=== PATIENT | male | born 1980 | race Caucasian/White ===

== ENCOUNTER 2016-10-22 13:29 | Emergency (ER) | payer MEDICAID, OTHER ==
[~2016-10-22] VITALS: Ht 188 cm; Wt 120.0 kg
[~2016-10-22 13:29] MED LIST: HYDR-3111 PO
[2016-10-22 13:30] VITALS: BP 146/77; PULSE 86; RESP 24; TEMP 97.6; O2SAT 97
--- NOTE | 2016-10-22 13:36 | PD ---
Physical Exam Time Seen by Provider: 13:33 Narrative 36 year old male presents stung by stingray yesterday. Awoke with increased L hand pain, n/v/chills. VSS. Seen at triage desk. Awaiting bed placement. Data Data Last Documented VS Vital Signs Date Time Temp Pulse Resp B/P Pulse Ox O2 Delivery O2 Flow Rate FiO2 10/22/16 13:30 97.6 86 24 146/77 97 Room Air [facility] Medical Record Reviewed: Yes Supervised Visit with DENISA: Yes Germán Lynn Oct 22, 2016 13:36
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
[2016-10-22] MEDS ORDERED: ONDANSETRON HCL 4 MG/2 ML VIAL IM ONE (14:30)
[2016-10-22] MEDS ORDERED: ACETAMINOPHEN/HYDROcodone 325 MG/5 MG TAB PO ONE (14:30)
[2016-10-22] MEDS ORDERED: TETANUS/DIPHTHERIA TOXOID ADULT 0.5 ML VIAL IM ONE (14:30)
[2016-10-22] MEDS ORDERED: LEVOFLOXACIN 750 MG TAB PO ONE (15:30)
[2016-10-22] MEDS ORDERED: HYDR-3533 PO (15:30)
[2016-10-22] MEDS ORDERED: DOXYCYCLINE HYCLATE 100 MG CAP PO ONE (15:30)
[2016-10-22] MEDS ORDERED: ONDA4TAB7 SL ×2 (15:35→15:37)
[2016-10-22] MEDS ORDERED: DOXY100C PO ×2 (15:35→15:37)
[2016-10-22] MEDS ORDERED: CIPR500T2 PO ×2 (15:35→15:37)
--- NOTE | 2016-10-22 15:36 | RADRPT ---
EXAM DATE/TIME: 10/22/2016 14:57 [facility] COMPARISON: No previous studies available for comparison. INDICATIONS : Left hand pain. Stung by a stingray yesterday. MEDICAL HISTORY : None. SURGICAL HISTORY : None. ENCOUNTER: Initial ACUITY: 1 day PAIN SCORE: 8/10 LOCATION: Left Lateral hand FINDINGS: Three views of the left hand demonstrate no fracture or dislocation. Mineralization is within normal limits and there is no significant arthropathy. No soft tissue abnormality or radiopaque foreign body is identified. CONCLUSION: No acute finding is identified. No radiopaque foreign body is seen. Sundeep Lowe MD on October 22, 2016 at 15:32 Board Certified Radiologist. This report was verified electronically.
== END 2016-10-22 16:56 | disposition home or self-care (01) ==
LOC: NEPD 13:29
DX: T63.511A Toxic effect of contact with stingray, accidental (unintentional), initial encounter (principal); L03.114 Cellulitis of left upper limb; R11.2 Nausea with vomiting, unspecified; F17.200 Nicotine dependence, unspecified, uncomplicated; Z23 Encounter for immunization; Z86.59 Personal history of other mental and behavioral disorders; X58.XXXA Exposure to other specified factors, initial encounter
CPT/HCPCS: 73130; 90471; 90714; 96372; 99283; J2405

== ENCOUNTER 2017-06-15 23:55 | Emergency (ER) | payer SELFPAY ==
[~2017-06-15] VITALS: Ht 188 cm; Wt 110.0 kg
[~2017-06-15 23:55] MED LIST changes: +CIPR500T2 PO; +DOXY100C PO; +HYDR-3533 PO; +ONDA4TAB7 SL
[2017-06-16 00:06] VITALS: BP 148/96; PULSE 96; RESP 18; TEMP 98.2; O2SAT 99
[2017-06-16 01:47] LABS: AUTOMATED NEUTROPHIL # 8.8 TH/MM3 (1.8-7.7); BASOPHIL # 0.1 TH/MM3 (0-0.2); BASOPHIL % 0.6 % (0.0-2.0); BLOOD, URINE NEG (NEG); EOSINOPHIL # 0.1 TH/MM3 (0-0.4); EOSINOPHIL % 1.1 % (0.0-4.0); GLUCOSE,URINE NEG (NEG); HEMATOCRIT 47.2 % (39.0-51.0); HEMO FLAGS DIFF FINAL; KETONE, URINE NEG (NEG); LYMPH % 20.2 % (9.0-44.0); LYMPHOCYTE # 2.5 TH/MM3 (1.0-4.8); MEAN CELL VOLUME 93.8 FL (80.0-100.0); MEAN CORPUSCULAR HGB CONC 34.1 % (32.0-36.0); MONO % 6.1 % (0.0-8.0); NITRITE,URINE NEG (NEG); PLATELET COUNT 294 TH/MM3 (150-450); RED BLOOD COUNT 5.03 MIL/MM3 (4.50-5.90); RED CELL DISTRIBUTION WIDTH 13.9 % (11.6-17.2); URINE COLOR LIGHT-YELLOW (YELLW/STRAW); WHITE BLOOD COUNT 12.2 TH/MM3 (4.0-11.0)
[2017-06-16 01:50] LABS: COMMENT (UR) CULT NOT INDICATED; CULTURE IF INDICATED CULT NOT INDICATED
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
[2017-06-16 02:01] LABS: ALT (GPT) 31 U/L (12-78); ANION GAP 7 MEQ/L (5-15); AST (GOT) 17 U/L (15-37); BICARBONATE 29.2 MEQ/L (21.0-32.0); BLOOD UREA NITROGEN 13 MG/DL (7-18); CHLORIDE 104 MEQ/L (98-107); GLOMERULAR FILTRATION RATE 85 ML/MIN (>89); MAGNESIUM 2.2 MG/DL (1.5-2.5); SODIUM (NA) 140 MEQ/L (136-145)
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
[2017-06-16 02:04] LABS: ALKALINE PHOSPHATASE 88 U/L (45-117); CREATINE KINASE 210 U/L (39-308); TOTAL BILIRUBIN ADULT 0.5 MG/DL (0.2-1.0)
[2017-06-16 02:16] LABS: CKMB 1.6 NG/ML (0.5-3.6)
[2017-06-16 02:35] LABS: APTT (PATIENT) 27.2 SEC (24.3-30.1); INTERNATIONAL NORMALIZED RATIO 1.1 RATIO; PROTHROMBIN TIME - PATIENT 10.9 SEC (9.8-11.6)
[2017-06-16] MEDS ORDERED: KETOROLAC TROMETHAMINE 30 MG/ML (IVP) VIAL IV PUSH ONE (03:15)
[2017-06-16] MEDS ORDERED: SODIUM CHLOR 0.9% 1000 ML INJ 1,000 ML IV ONE (03:15)
[2017-06-16] MEDS ORDERED: ONDANSETRON HCL 4 MG/2 ML VIAL IV ONE (03:15)
--- NOTE | 2017-06-16 03:56 | RADRPT ---
EXAM DATE/TIME: 06/16/2017 03:16 [facility] COMPARISON: No previous studies available for comparison. INDICATIONS : Right sided abdomen pain. ORAL CONTRAST: No oral contrast ingested. RADIATION DOSE: 8.56 CTDIvol (mGy) MEDICAL HISTORY : None SURGICAL HISTORY : None. ENCOUNTER: Initial ACUITY: 1 day PAIN SCALE: 8/10 LOCATION: Right abdomen TECHNIQUE: Volumetric scanning of the abdomen and pelvis was performed. Using automated exposure control and ad justment of the mA and/or kV according to patient size, radiation dose was kept as low as reasonably achievable to obtain optimal diagnostic quality images. DICOM format image data is available electro nically for review and comparison. FINDINGS: LOWER LUNGS: The visualized lower lungs are clear. LIVER: Homogeneous density without lesion. There is no dilation of the biliary tree. No calcified gallston es. SPLEEN: Normal size without lesion. PANCREAS: Within normal limits. KIDNEYS: Normal in size and shape. There is no mass, stone, or hydronephrosis. The visualized portions of the ureters are unremarkable. ADRENAL GLANDS: Within normal limits. VASCULAR: There is no aortic aneurysm. BOWEL/MESENTERY: No oral contrast was given limiting the sensitivity. The stomach, small bowel, and colon demonstrate no acute abnormality. There is no free intraperitoneal air or fluid. ABDOMINAL WALL: Within normal limits. RETROPERITONEUM: There is no lymphadenopathy. BLADDER: No wall thickening or mass. REPRODUCTIVE: Within normal limits. INGUINAL: There is no lymphadenopathy or hernia. MUSCULOSKELETAL: Within normal limits for patient age. CONCLUSION: 1. The kidneys and visualized portions of the ureters are unremarkable with no renal calculi or obstr uction. 2. Nonobstructive bowel gas pattern with no inflammatory change. Robby Keene MD on June 16, 2017 at 3:52 Board Certified Radiologist. This report was verified electronically.
--- NOTE | 2017-06-16 19:35 | EKG ---
Date Performed: 06/16/2017 Time Performed: 01:31:33 PTAGE: 36 years EKG: Sinus rhythm Since previous tracing, no significant change noted NORMAL ECG PREVIOUS TRACING : 06/08/2016 15.05.16 DOCTOR: José Miguel Brooks Interpretating Date/Time 06/16/2017 19:35:27
== END 2017-06-16 05:02 | disposition home or self-care (01) ==
LOC: NEPE 23:55
DX: R10.11 Right upper quadrant pain (principal); R05 Cough; R06.02 Shortness of breath; F31.9 Bipolar disorder, unspecified; F41.9 Anxiety disorder, unspecified; F17.200 Nicotine dependence, unspecified, uncomplicated; Z88.0 Allergy status to penicillin; Z79.899 Other long term (current) drug therapy
CPT/HCPCS: 71010; 74176; 80053; 81001; 82550; 82552; 83690; 83735; 83880; 84484; 85025; 85379; 85610; 85730; 86140; 93005; 96361; 96374; 96375; 99285; J1885; J2405; J7030

== ENCOUNTER 2017-06-25 09:54 | Emergency (ER) | payer SELFPAY ==
[2017-06-25 09:56] VITALS: BP 140/80; PULSE 89; RESP 14; TEMP 98; O2SAT 99
== END 2017-06-25 10:00 | disposition left against medical advice (07) ==
LOC: NED 09:54
DX: Z00.8 Encounter for other general examination (principal); Z53.21 Procedure and treatment not carried out due to patient leaving prior to being seen by health care provider
CPT/HCPCS: 99281

== ENCOUNTER 2017-06-30 22:00 | Emergency (ER) | payer SELFPAY ==
[~2017-06-30] VITALS: Ht 189.2 cm; Wt 118.2 kg
[2017-06-30 22:02] VITALS: BP 134/84; PULSE 74; RESP 16; TEMP 98.4; O2SAT 99
[2017-06-30] MEDS ORDERED: ROXI30TA14 PO (23:07)
[2017-06-30] MEDS ORDERED: SODIUM CHLOR 0.9% 1000 ML INJ 1,000 ML IV ONE (23:54)
[2017-07-01] MEDS ORDERED: SODIUM CHLORIDE 0.9% FLUSH 10 ML FLUSH IVF PRN
[2017-07-01] MEDS ORDERED: CLIN150C14 PO (00:16)
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
--- NOTE | 2017-07-01 12:49 | EKG ---
Date Performed: 06/30/2017 Time Performed: 23:02:54 PTAGE: 36 years EKG: SINUS BRADYCARDIA BORDERLINE ECG PREVIOUS TRACING : 06/21/2017 22.47 Since previous tracing, no significant change noted DOCTOR: Tone Lyles Interpretating Date/Time 07/01/2017 12:48:42
== END 2017-07-01 00:30 | disposition left against medical advice (07) ==
LOC: NEPE 22:00
DX: R55 Syncope and collapse (principal); H00.026 Hordeolum internum left eye, unspecified eyelid; H00.023 Hordeolum internum right eye, unspecified eyelid; F17.200 Nicotine dependence, unspecified, uncomplicated
CPT/HCPCS: 93005; 99281

== ENCOUNTER 2017-09-14 17:21 | Emergency (ER) | payer OTHER ==
[~2017-09-14] VITALS: Ht 188 cm; Wt 115.0 kg
[~2017-09-14 17:21] MED LIST changes: -CIPR500T2 PO; +CLIN150C14 PO; -DOXY100C PO; -HYDR-3111 PO; -HYDR-3533 PO; -ONDA4TAB7 SL; +ROXI30TA14 PO
[2017-09-14 17:25] VITALS: BP 158/83; PULSE 98; RESP 16; TEMP 98.7; O2SAT 99
[2017-09-14 18:22] VITALS: BP 116/84; PULSE 97; RESP 18; O2SAT 99
[2017-09-14] MEDS ORDERED: HYDR-3366 PO (18:27)
[2017-09-14] MEDS ORDERED: NICO14DI T-DERMAL (18:27)
[2017-09-14] MEDS ORDERED: OMEP20TA93 PO (18:27)
[2017-09-14] MEDS ORDERED: ZOFR4TAB PO (18:27)
[2017-09-14] MEDS ORDERED: METH500T3 PO (18:27)
[2017-09-14] MEDS ORDERED: CYCL10TA PO (18:27)
[2017-09-14] MEDS ORDERED: CELE100C PO (18:27)
[2017-09-14] MEDS ORDERED: SODIUM CHLOR 0.9% 1000 ML INJ 1,000 ML IV SCH (18:39)
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
[2017-09-14] MEDS ORDERED: MORPHINE SULFATE 4 MG/ML INJ IV PUSH ONE (18:45)
[2017-09-14] MEDS ORDERED: METOCLOPRAMIDE HCL 10 MG/2 ML VIAL IV PUSH ONE (18:45)
[2017-09-14] MEDS ORDERED: PANTOPRAZOLE SODIUM 40 MG VIAL IVP ONE (18:45)
--- NOTE | 2017-09-14 19:09 | PD ---
Physical Exam Narrative I, Dr. Room, have reviewed the advance practice practitioner's documentation and am in agreement, met with the patient face to face, made the diagnosis, and the medical decision making was done by me. *My assessment and Findings: Migraine headache vs. chronic headache vs. malingering 37yo M with headache since Sep 02 after slip and fall at work. Said he hit his head, neck, upper back and has had an extensive work up and was told he had concussion and post concussion syndrome. However, pt did not have LOC. Denies any new trauma or fall. Denies any focal neurologic deficits. Pt said he went to his PMD last friday and was given hydrocodone for the headache and headache is worst now. Said he ran out of hydrocodone today. No red flags. My PA will reevaluate pt after medications. Data Data Last Documented VS Vital Signs Date Time Temp Pulse Resp B/P (MAP) Pulse Ox O2 Delivery O2 Flow Rate FiO2 09/14/17 19:25 20 09/14/17 19:24 81 142/68 (92) 09/14/17 18:22 99 Room Air 09/14/17 17:25 98.7 Orders Orders Complete Blood Count With Diff (09/14/17 18:39) Comprehensive Metabolic Panel (09/14/17 18:39) Lipase (09/14/17 18:39) Morphine Inj (Morphine Inj) (09/14/17 18:45) Pantoprazole Inj (Protonix Inj) (09/14/17 18:45) Sodium Chlor 0.9% 1000 Ml Inj (Ns 1000 M (09/14/17 18:39) Metoclopramide Inj (Reglan Inj) (09/14/17 18:45) Ed Discharge Order (09/14/17 19:42) Labs Laboratory Tests Test 09/14/17 19:04 White Blood Count 7.3 TH/MM3 Red Blood Count 5.49 MIL/MM3 Hemoglobin 17.7 GM/DL Hematocrit 50.5 % Mean Corpuscular Volume 92.0 FL Mean Corpuscular Hemoglobin 32.3 PG Mean Corpuscular Hemoglobin Concent 35.1 % Red Cell Distribution Width 13.0 % Platelet Count 300 TH/MM3 Mean Platelet Volume 7.7 FL Neutrophils (%) (Auto) 66.0 % Lymphocytes (%) (Auto) 21.8 % Monocytes (%) (Auto) 9.5 % Eosinophils (%) (Auto) 2.1 % Basophils (%) (Auto) 0.6 % Neutrophils # (Auto) 4.8 TH/MM3 Lymphocytes # (Auto) 1.6 TH/MM3 Monocytes # (Auto) 0.7 TH/MM3 Eosinophils # (Auto) 0.2 TH/MM3 Basophils # (Auto) 0.0 TH/MM3 CBC Comment DIFF FINAL Differential Comment Blood Urea Nitrogen 12 MG/DL Creatinine 1.13 MG/DL Random Glucose 78 MG/DL Total Protein 7.8 GM/DL Albumin 4.1 GM/DL Calcium Level 9.2 MG/DL Alkaline Phosphatase 93 U/L Aspartate Amino Transf (AST/SGOT) 25 U/L Alanine Aminotransferase (ALT/SGPT) 38 U/L Total Bilirubin 0.5 MG/DL Sodium Level 137 MEQ/L Potassium Level 4.0 MEQ/L Chloride Level 102 MEQ/L Carbon Dioxide Level 30.8 MEQ/L Anion Gap 4 MEQ/L Estimat Glomerular Filtration Rate 72 ML/MIN Lipase 121 U/L [facility] Supervised Visit with DENISA: Yes Diagnosis Primary Impression: Headache Qualified Codes: G44.319 - Acute post-traumatic headache, not intractable Condition: Stable Jeannie Romo DO Sep 14, 2017 19:09
[2017-09-14 19:24] VITALS: BP 142/68
[2017-09-14 19:25] VITALS: RESP 20
[2017-09-14 19:56] LABS: AUTOMATED NEUTROPHIL # 4.8 TH/MM3 (1.8-7.7); BASOPHIL % 0.6 % (0.0-2.0); EOSINOPHIL # 0.2 TH/MM3 (0-0.4); EOSINOPHIL % 2.1 % (0.0-4.0); HEMATOCRIT 50.5 % (39.0-51.0); HEMOGLOBIN 17.7 GM/DL (13.0-17.0); LYMPH % 21.8 % (9.0-44.0); LYMPHOCYTE # 1.6 TH/MM3 (1.0-4.8); MEAN CORPUSCULAR HEMOGLOBIN 32.3 PG (27.0-34.0); MEAN CORPUSCULAR HGB CONC 35.1 % (32.0-36.0); MEAN PLATELET VOLUME 7.7 FL (7.0-11.0); MONO % 9.5 % (0.0-8.0); MONOCYTE # 0.7 TH/MM3 (0-0.9); PLATELET COUNT 300 TH/MM3 (150-450); RED BLOOD COUNT 5.49 MIL/MM3 (4.50-5.90); WHITE BLOOD COUNT 7.3 TH/MM3 (4.0-11.0)
[2017-09-14 20:14] LABS: ALKALINE PHOSPHATASE 93 U/L (45-117); ALT (GPT) 38 U/L (12-78); TOTAL BILIRUBIN ADULT 0.5 MG/DL (0.2-1.0); TOTAL PROTEIN 7.8 GM/DL (6.4-8.2)
[2017-09-14 20:18] LABS: ALBUMIN 4.1 GM/DL (3.4-5.0); AST (GOT) 25 U/L (15-37); BICARBONATE 30.8 MEQ/L (21.0-32.0); BLOOD UREA NITROGEN 12 MG/DL (7-18); CALCIUM 9.2 MG/DL (8.5-10.1); CHLORIDE 102 MEQ/L (98-107); CREATININE 1.13 MG/DL (0.60-1.30); GLOMERULAR FILTRATION RATE 72 ML/MIN (>89); GLUCOSE,RANDOM 78 MG/DL (74-106); SODIUM (NA) 137 MEQ/L (136-145)
== END 2017-09-14 19:47 | disposition left against medical advice (07) ==
LOC: NEPC 17:21
DX: G44.319 Acute post-traumatic headache, not intractable
CPT/HCPCS: 80053; 83690; 85025; 96374; 96375; 99284; C9113; J2270; J2765; J7030

== ENCOUNTER 2017-10-04 16:37 | Emergency (ER) | payer OTHER ==
[~2017-10-04 16:37] MED LIST changes: +CELE100C PO; +CYCL10TA PO; +HYDR-3366 PO; +METH500T3 PO; +NICO14DI T-DERMAL; +OMEP20TA93 PO; +ZOFR4TAB PO
== END 2017-10-04 16:55 | disposition left against medical advice (07) ==
LOC: NED 16:37
DX: Z53.21 Procedure and treatment not carried out due to patient leaving prior to being seen by health care provider (principal)
CPT/HCPCS: 99281